=== PATIENT | male | born 1960 | race Caucasian/White ===

== ENCOUNTER 2017-09-01 17:47 | Emergency (ER) | payer BC ==
[~2017-09-01] VITALS: Ht 190.5 cm; Wt 115.0 kg
[~2017-09-01 17:47] MED LIST: ASPI81TA82 PO; DAPA1TAB6 PO; HYDR-3533 PO; LEVO75TA3 PO; METO25 PO; PRIN10TA PO; TAB-TAB PO
[2017-09-01 17:48] VITALS: BP 223/108; PULSE 110; RESP 20; TEMP 98.7; O2SAT 98
[2017-09-01 18:02] VITALS: BP 132/95; PULSE 107; RESP 20; O2SAT 96
[2017-09-01] MEDS ORDERED: LISI2.5T3 PO (18:09)
[2017-09-01] MEDS ORDERED: MULTTAB67 PO (18:09)
[2017-09-01] MEDS ORDERED: ASPI81CH6 CHEW (18:09)
[2017-09-01] MEDS ORDERED: METO25TA3 PO (18:09)
[2017-09-01] MEDS ORDERED: TETANUS/DIPHTHERIA TOXOID ADULT 0.5 ML VIAL IM ONE (18:30)
--- NOTE | 2017-09-01 18:38 | PD ---
HPI Chief Complaint: Fall Time Seen by Provider: 18:04 Travel History International Travel<30 days: No Contact w/Intl Traveler<30days: No Traveled to known affect area: No History of Present Illness HPI 57-year-old male with PMH of HTN, DM presents to the ED for evaluation of headache and facial pain after mechanical fall from standing approximately 24 hours ago. The patient states that he misstepped and fell, landing face first on the concrete. He denies loss of consciousness. On presentation he endorses mild frontal headache which he rates as 0/10. He denies dizziness, vision changes, malocclusion, breathing difficulties, chest pain, palpitations, abdominal pain, nausea, vomiting, limitations to range of motion of the extremities. He has been ambulatory since the accident. He endorses striking a few alcoholic drinks before presentation today. He is accompanied by a friend who states that she felt like his right eye was a little droopy yesterday and urged him to come for evaluation today. He denies facial droop, difficulties with word finding, unilateral weakness. He is unsure of the date of his last tetanus immunization. PFSH Past Medical History Cancer: No Diabetes: Yes Genitourinary: No Hepatitis: No Hiatal Hernia: No Hypertension: Yes Psychiatric: No Respiratory: No Thyroid Disease: No Past Surgical History Abdominal Surgery: Yes (HERNIA SURGERY, COLON RESECTION) Social History Alcohol Use: Yes Tobacco Use: No Substance Use: No Allergies-Medications (Allergen,Severity, Reaction): Coded Allergies: No Known Allergies (Unverified Adverse Reaction, Unknown, 09/01/17) Reported Meds & Prescriptions Reported Meds & Active Scripts Active Reported Multiple Vitamin 1 Tab 1 Tab PO DAILY Metoprolol Tartrate 25 Mg Tab 25 Mg PO BID Lisinopril 2.5 Mg Tab 12.5 Mg PO DAILY Aspirin Low Dose (Aspirin) 81 Mg Chew 81 Mg CHEW DAILY Review of Systems Except as stated in HPI: all other systems reviewed are Neg Physical Exam Narrative GENERAL: Well-nourished, well-developed white male in no acute distress. SKIN: Focused skin assessment warm/dry. Abrasions of the forehead, nose and left knee. No active bleeding or signs of infection. HEAD: Normocephalic. No tenderness to palpation of the skull bones. EYES: No scleral icterus. No injection or drainage. PERRLA. EOMI. ENT: No hemotympanum. Mild TTP of the nasal bones. Airway patent. No malocclusion. No movement of the alveolar ridge. NECK: Supple, trachea midline. No JVD or lymphadenopathy. No midline tenderness to palpation of the neck. No pain or limitations to range of motion of the neck. CARDIOVASCULAR: Regular rate and rhythm without murmurs, gallops, or rubs. RESPIRATORY: Breath sounds clear and equal bilaterally. No accessory muscle use. Nontender throughout the chest without deformity or crepitus. GASTROINTESTINAL: Abdomen soft, non-tender, nondistended. Active bowel sounds. MUSCULOSKELETAL: No cyanosis, or edema. No tenderness to palpation of the joints of the upper and lower extremities bilaterally. No pain elicited with hip rocking 2+ DP pulses in the bilateral lower extremities. Bilateral knee exam reveals no patellar balloting, limitations to range of motion or pain elicited with varus/valgus stress testing. NEUROLOGICAL: Awake and alert. Cranial nerves II through XII intact. Motor and sensory grossly within normal limits. Five out of 5 muscle strength in all muscle groups. Normal speech. BACK: Nontender without obvious deformity. No CVA tenderness. Data Data Last Documented VS Vital Signs Date Time Temp Pulse Resp B/P (MAP) Pulse Ox O2 Delivery O2 Flow Rate FiO2 09/01/17 21:07 09/01/17 18:02 107 20 96 09/01/17 17:48 98.7 Room Air Orders Orders Ct Brain W/O Iv Contrast(Rout) (09/01/17 18:18) Ct Facial Bones W/O Iv Cont (09/01/17 18:18) Tetanus/Diphtheria Tox Adult (Tetanus/Di (09/01/17 18:30) Ed Discharge Order (09/01/17 21:04) [facility] Medical Decision Making Medical Screen Exam Complete: Yes Emergency Medical Condition: Yes Differential Diagnosis Musculoskeletal pain versus abrasion versus facial fracture versus ICH versus need for tetanus immunization versus other Narrative Course 57-year-old male with PMH of HTN, DM presents to the ED for evaluation of headache and facial pain after mechanical fall from standing approximately 24 hours ago. The patient states that he misstepped and fell, landing face first on the concrete. He denies LOC. On presentation he endorses mild frontal headache, rated 0/10. He denies dizziness, vision changes, malocclusion, breathing difficulties, chest pain, palpitations, abdominal pain, nausea, vomiting, limitations to range of motion of the extremities. He has been ambulatory since the accident. He endorses having a few alcoholic drinks before presentation today. He denies facial droop, difficulties with word finding, unilateral weakness. He is unsure of the date of his last tetanus immunization. Vitals reviewed. Patient is mildly tachycardic on presentation. Physical exam reveals several abrasions notably of the forehead, nose and face and left knee without signs of infection. No focal neuro deficits. Prabhu palpation of the nasal bones but the remaining bones of the face and skull are nontender. No malocclusion. Patient's tetanus immunization was updated. I offered the patient pain medications which he declined. CT scan of the brain and facial bones are negative for acute injury per radiology read. I discussed the radiological exams with the patient who was reassured. He is instructed to use OTC medications, ice and gentle activity as tolerated, follow- up with his primary care provider. He states that he has an upcoming appointment. He is stable and discharged home. Diagnosis Primary Impression: Fall from standing Qualified Codes: W19.XXXA - Unspecified fall, initial encounter Additional Impressions: Facial contusion Qualified Codes: S00.83XA - Contusion of other part of head, initial encounter Abrasion, right knee, initial encounter Abrasion of nose, initial encounter Abrasion of forehead Qualified Codes: S00.81XA - Abrasion of other part of head, initial encounter Immunization, tetanus toxoid Referrals: Primary Care Physician Patient Instructions: Facial Contusion (ED), General Instructions Additional Instructions: Rest, hydrate. Return to normal, gentle activity as tolerated. Follow-up with your primary care provider. Return to the ED for any urgent or emergent medical condition. Dory Vernon Sep 01, 2017 18:38
--- NOTE | 2017-09-01 20:58 | RADRPT ---
EXAM DATE/TIME: 09/01/2017 18:55 [facility] COMPARISON: No previous studies available for comparison. INDICATIONS : Trauma, fall. Laceration to nose. RADIATION DOSE: 56.76 CTDIvol (mGy) MEDICAL HISTORY : Hypertension. SURGICAL HISTORY : None. ENCOUNTER: Initial ACUITY: 1 day PAIN SCORE: 7/10 LOCATION: facial TECHNIQUE: Volumetric scanning of the facial bones was performed. Using automated exposure control and adjustme nt of the mA and/or kV according to patient size, radiation dose was kept as low as reasonably achiev able to obtain optimal diagnostic quality images. DICOM format image data is available electronicVoodooVox y for review and comparison. FINDINGS: ORBITS: The orbital and infraorbital osseous structures are intact. The retroconal structures have a normal configuration. No radiopaque foreign bodies are seen. NASAL BONE: The nasal bone and maxillary spine are intact ZYGOMATIC ARCHES: Symmetric without evidence of fracture. SINUSES: Minimal mucosal thickening in the lateral right maxillary sinus. The sinuses are otherwise clear. NASAL CAVITY: The nasal septum is intact and midline. The lacrimal ducts are intact. SOFT TISSUES: No radiopaque foreign bodies seen. No soft-tissue swelling is seen. INTRACRANIAL: No intracranial air seen. CRIBIFORM PLATE: Grossly intact. CONCLUSION: No facial bone fracture is seen. Kp Swartz MD on September 01, 2017 at 20:08 Board Certified Radiologist. This report was verified electronically.
--- NOTE | 2017-09-01 20:58 | RADRPT ---
EXAM DATE/TIME: 09/01/2017 18:55 [facility] COMPARISON: No previous studies available for comparison. INDICATIONS : Trauma, fall. RADIATION DOSE: 49.37 CTDIvol (mGy) MEDICAL HISTORY : Hypertension. SURGICAL HISTORY : None. ENCOUNTER: Initial ACUITY: 1 day PAIN SCALE: 4/10 LOCATION: cranial TECHNIQUE: Multiple contiguous axial images were obtained of the head. Using automated exposure control and adj ustment of the mA and/or kV according to patient size, radiation dose was kept as low as reasonably a chievable to obtain optimal diagnostic quality images. DICOM format image data is available electro nically for review and comparison. FINDINGS: CEREBRUM: The ventricles are normal for age. No evidence of midline shift, mass lesion, hemorrhage or acute in farction. No extra-axial fluid collections are seen. POSTERIOR FOSSA: The cerebellum and brainstem are intact. The 4th ventricle is midline. The cerebellopontine angle i s unremarkable. EXTRACRANIAL: The visualized portion of the orbits is intact. SKULL: The calvaria is intact. No evidence of skull fracture. CONCLUSION: Negative noncontrast CT brain. Kp Swartz MD on September 01, 2017 at 20:08 Board Certified Radiologist. This report was verified electronically.
== END 2017-09-01 21:31 | disposition home or self-care (01) ==
LOC: NEPC 17:47
DX: S00.83XA Contusion of other part of head, initial encounter (principal); S80.211A Abrasion, right knee, initial encounter; S00.31XA Abrasion of nose, initial encounter; S00.81XA Abrasion of other part of head, initial encounter; R00.0 Tachycardia, unspecified; E11.9 Type 2 diabetes mellitus without complications; I10 Essential (primary) hypertension; W18.30XA Fall on same level, unspecified, initial encounter; Z23 Encounter for immunization
CPT/HCPCS: 70450; 70486; 90471; 90714